=== PATIENT | female | born 1950 | race Caucasian/White ===

== ENCOUNTER 2017-01-11 09:03 | Day surgery (SDC) | payer OTHER ==
--- NOTE | 2017-01-10 12:37 | NUR ---
LABS AND TESTS SENT TO [facility] FOR REVIEW. [facility]GERY 01-11-[address] Jossie PUGH.
[~2017-01-11] VITALS: Ht 152.4 cm; Wt 55.8 kg
[2017-01-11 09:27] VITALS: BP 148/84
[2017-01-11 16:45] VITALS: BP 125/80
== END 2017-01-11 16:35 | disposition home or self-care (01) ==
LOC: DS 09:03
PROVIDERS: Neuromusculoskeletal Medicine, Sports Medicine
PROC: 0RNJ0ZZ Release Right Shoulder Joint, Open Approach (ICD-10-PCS; 2017-01-11)
PROC: 0LQ10ZZ Repair Right Shoulder Tendon, Open Approach (ICD-10-PCS; principal; 2017-01-11 11:00)
DX: M75.111 Incomplete rotator cuff tear or rupture of right shoulder, not specified as traumatic (principal); I10 Essential (primary) hypertension; E11.9 Type 2 diabetes mellitus without complications; E78.5 Hyperlipidemia, unspecified
CPT/HCPCS: C1713; J0330; J0690; J1170; J2175; J2250; J2405; J2704; J3010; J3490; J7030